=== PATIENT | female | born 1980 | race American Indian/Alaskan Native ===

== ENCOUNTER 2017-07-27 12:22 | Emergency (ER) | payer BC ==
--- NOTE | 2017-07-27 14:30 | PCM.SN ---
- Free Text/Narrative Note: S: 37yo female with dysuria, urgency, frequency. Feels like a UTI she had over 10 years ago. No fever, chills, nausea, vomiting or back pain. O: See nurses vitals that are within normal limits. General well appearing. No formal exam. UA: Protein 100. Leukocyte esterase Large. micro pending. A: UTI P: Macrobid 100mg BID for 7 days prescribed. Follow up PRN. Patient should not have ER charges beyond nurse triage and lab. NO PHYSICIAN CHARGE for myself. -Dr. Verduzco
== END 2017-07-27 14:02 | disposition home or self-care (01) ==
LOC: DL.ED 12:22
DX: Z53.21 Procedure and treatment not carried out due to patient leaving prior to being seen by health care provider (principal)
CPT/HCPCS: 81001

== ENCOUNTER 2018-08-13 20:30 | Emergency (ER) | payer BC ==
[2018-08-13] MEDS ORDERED: Ondansetron 4 MG/2 ML SDV IV ONE ×2 (20:51→20:57)
[2018-08-13] MEDS ORDERED: Sodium Chloride 0.9% 1,000 ML IV ONE (20:51)
[2018-08-13] MEDS ORDERED: Metoclopramide 10 MG/2 ML SDV IVPUSH ONE (21:30)
[2018-08-13 21:35] LABS: ANION GAP 15.1; CHLORIDE,CL 99 mmol/L (101-111); SODIUM,NA 134 mmol/L (135-145)
[2018-08-13] MEDS ORDERED: Iopamidol 612 MG/ML 75 ML Bottle IVPUSH ONE (21:52)
--- NOTE | 2018-08-13 21:57 | EDM.PDOC ---
ED HPI GENERAL MEDICAL PROBLEM - General Chief Complaint: Gastrointestinal Problem Stated Complaint: NOT FELLING WELL Time Seen by Provider: 08/13/18 21:54 Source of Information: Reports: Patient History Limitations: Reports: No Limitations - History of Present Illness INITIAL COMMENTS - FREE TEXT/NARRATIVE: c/o V&D today and abd pain too. Abdominal Pain Score (Numeric/FACES): 2 - Related Data Allergies Allergy/AdvReac Type Severity Reaction Status Date / Time No Known Allergies Allergy Verified 07/27/17 13:50 Home Meds: Home Meds . [No Known Home Meds] 08/13/18 [History] Past Medical History HEENT History: Reports: None Cardiovascular History: Reports: None Respiratory History: Reports: Asthma Gastrointestinal History: Reports: None Genitourinary History: Reports: UTI, Recurrent CRISIS NURSE History: Reports: , Other (See Below) Other CRISIS NURSE History: OB vaginal delivery 07/09/17 Musculoskeletal History: Reports: None Neurological History: Reports: None Psychiatric History: Reports: Depression Endocrine/Metabolic History: Reports: None Hematologic History: Reports: None Immunologic History: Reports: None Oncologic (Cancer) History: Reports: None - Past Surgical History Head Surgeries/Procedures: Reports: None HEENT Surgical History: Reports: None Respiratory Surgical History: Reports: None GI Surgical History: Reports: None Female Surgical History: Reports: None Musculoskeletal Surgical History: Reports: None Social & Family History - Family History Family Medical History: Noncontributory - Tobacco Use Smoking Status *Q: Never Smoker Second Hand Smoke Exposure: No - Caffeine Use Caffeine Use: Reports: None - Recreational Drug Use Recreational Drug Use: No ED ROS GENERAL - Review of Systems Review Of Systems: ROS reveals no pertinent complaints other than HPI. ED EXAM, GI/ABD - Physical Exam Exam: See Below Exam Limited By: No Limitations General Appearance: Alert, WD/WN, Mild Distress, Active Emesis, Other ( discomfort) Ears: Hearing Grossly Normal Throat/Mouth: Normal Voice, No Airway Compromise Head: Atraumatic Neck: Non-Tender, Full Range of Motion Respiratory/Chest: No Respiratory Distress Cardiovascular: Regular Rate, Rhythm GI/Abdominal Exam: Tender, Other (BS hyper). No: Distended, Guarding, Rigid, Rebound Neurological: Alert, Oriented, Normal Cognition, Normal Gait, No Motor/Sensory Deficits Psychiatric: Tearful Skin Exam: Warm, Dry, Normal Color Lymphatic: No Adenopathy Course - Vital Signs Last Recorded V/S: Last Vital Signs Temp 37.2 C 08/13/18 23:04 Pulse 97 08/13/18 23:04 Resp 18 08/13/18 23:04 BP 91/49 L 08/13/18 23:04 Pulse Ox 99 08/13/18 23:04 - Orders/Labs/Meds Orders: Active Orders 24 hr Category Date Time Status Abdomen Pelvis w Cont [CT] Urgent Exams 08/13/18 21:53 Taken CULTURE BLOOD [BC] Stat Lab 08/13/18 21:05 Received Labs: Laboratory Tests 08/13/18 08/13/18 08/13/18 Range/Units 21:05 21:05 21:05 WBC 16.0 H (5.0-10.0) 10^3/uL RBC 4.56 (4.2-5.4) 10^6/uL Hgb 14.1 (12.0-16.0) g/dL Hct 42.2 (37.0-47.0) % MCV 92.5 (80-100) fL MCH 30.9 (27.0-34.0) pg MCHC 33.4 (33.0-35.0) g/dL Plt Count 290 (150-450) 10^3/uL Neut % (Auto) 95.3 H (42.2-75.2) % Lymph % (Auto) 1.7 L (20.5-50.1) % Harney % (Auto) 2.7 (2-8) % Eos % (Auto) 0.2 L (1.0-3.0) % Baso % (Auto) 0.1 (0.0-1.0) % Sodium 134 L (135-145) mmol/L Potassium 3.1 L (3.6-5.0) mmol/L Chloride 99 L (101-111) mmol/L Carbon Dioxide 23.0 (21.0-31.0) mmol/L Anion Gap 15.1 BUN 18 (7-18) mg/dL Creatinine 0.6 (0.6-1.3) mg/dL Est Cr Clr Drug Dosing 131.56 mL/min Estimated GFR (MDRD) > 60 BUN/Creatinine Ratio 30.00 Glucose 111 H (74-105) mg/dL Lactic Acid 1.0 (0.5-2.2) mmol/L Calcium 8.9 (8.4-10.2) mg/dl Total Bilirubin 0.9 (0.2-1.0) mg/dL AST 29 (10-42) IU/L ALT 33 (10-60) IU/L Alkaline Phosphatase 54 (42-121) IU/L Total Protein 8.6 H (6.7-8.2) g/dl Albumin 4.6 (3.2-5.5) g/dl Globulin 4.0 Albumin/Globulin Ratio 1.15 Amylase 78 (28-100) U/L Lipase 23 (22-51) U/L HCG, Qual Negative Urine Color (YELLOW) Urine Appearance (CLEAR) Urine pH (5.0-9.0) Ur Specific Jal (1.005-1.030) Urine Protein (NEGATIVE) Urine Glucose (UA) (NEGATIVE) Urine Ketones (NEGATIVE) Urine Occult Blood (NEGATIVE) Urine Nitrite (NEGATIVE) Urine Bilirubin (NEGATIVE) Urine Urobilinogen (0.2-1.0) mg/dL Ur Leukocyte Esterase (NEGATIVE) Urine RBC /HPF Urine WBC (0-5/HPF) /HPF Ur Epithelial Cells /HPF Urine Bacteria (0-FEW/HPF) /HPF Urine Mucus /LPF 08/13/18 Range/Units 21:48 WBC (5.0-10.0) 10^3/uL RBC (4.2-5.4) 10^6/uL Hgb (12.0-16.0) g/dL Hct (37.0-47.0) % MCV (80-100) fL MCH (27.0-34.0) pg MCHC (33.0-35.0) g/dL Plt Count (150-450) 10^3/uL Neut % (Auto) (42.2-75.2) % Lymph % (Auto) (20.5-50.1) % Harney % (Auto) (2-8) % Eos % (Auto) (1.0-3.0) % Baso % (Auto) (0.0-1.0) % Sodium (135-145) mmol/L Potassium (3.6-5.0) mmol/L Chloride (101-111) mmol/L Carbon Dioxide (21.0-31.0) mmol/L Anion Gap BUN (7-18) mg/dL Creatinine (0.6-1.3) mg/dL Est Cr Clr Drug Dosing mL/min Estimated GFR (MDRD) BUN/Creatinine Ratio Glucose (74-105) mg/dL Lactic Acid (0.5-2.2) mmol/L Calcium (8.4-10.2) mg/dl Total Bilirubin (0.2-1.0) mg/dL AST (10-42) IU/L ALT (10-60) IU/L Alkaline Phosphatase (42-121) IU/L Total Protein (6.7-8.2) g/dl Albumin (3.2-5.5) g/dl Globulin Albumin/Globulin Ratio Amylase (28-100) U/L Lipase (22-51) U/L HCG, Qual Urine Color Yellow (YELLOW) Urine Appearance Slightly cloudy (CLEAR) Urine pH 8.5 (5.0-9.0) Ur Specific Jal 1.015 (1.005-1.030) Urine Protein Trace H (NEGATIVE) Urine Glucose (UA) Negative (NEGATIVE) Urine Ketones >=160 H (NEGATIVE) Urine Occult Blood Large H (NEGATIVE) Urine Nitrite Negative (NEGATIVE) Urine Bilirubin Negative (NEGATIVE) Urine Urobilinogen 0.2 (0.2-1.0) mg/dL Ur Leukocyte Esterase Negative (NEGATIVE) Urine RBC >100 H /HPF Urine WBC 0-5 (0-5/HPF) /HPF Ur Epithelial Cells Rare /HPF Urine Bacteria Rare (0-FEW/HPF) /HPF Urine Mucus Rare /LPF Meds: Medications Discontinued Medications Generic Name Dose Route Start Last Admin Trade Name Scarq PRN Reason Stop Dose Admin Sodium Chloride 1,000 mls @ 999 mls/hr 08/13/18 20:51 08/13/18 21:06 Normal Saline IV 08/13/18 21:51 999 mls/hr .BOLUS ONE Administration Iopamidol 75 ml 08/13/18 21:52 08/13/18 22:20 Isovue-300 (61%) IVPUSH 08/13/18 21:53 73 ml ONETIME ONE Administration Ketorolac Tromethamine 15 mg 08/13/18 22:26 08/13/18 22:33 Toradol IVPUSH 08/13/18 22:27 15 mg ONETIME ONE Administration Metoclopramide HCl 10 mg 08/13/18 21:30 08/13/18 21:35 Reglan IVPUSH 08/13/18 21:31 10 mg ONETIME ONE Administration Ondansetron HCl 4 mg 08/13/18 20:51 08/13/18 21:07 Zofran IV 08/13/18 20:52 4 mg ONETIME ONE Administration Ondansetron HCl 4 mg 08/13/18 20:57 08/13/18 21:08 Zofran IV 08/13/18 20:58 Not Given ONETIME ONE - Re-Assessments/Exams Free Text/Narrative Re-Assessment/Exam: 08/13/18 23:27 results discussed with pt who is feeling better s/p IV + Rx Departure - Departure Time of Disposition: 23:27 Disposition: Home, Self-Care 01 Condition: Good Clinical Impression: Vomiting, Diarrhea, Gastroenteritis - Discharge Information Instructions: Nausea and Vomiting, Adult, [id number] Forms: ED Department Discharge Additional Instructions: 1) no solid foods next 48 hours 2) rest 3) liquids rx given; bentyl 10mg bid prn x 8 zofran 4mg bid prn x 6 imodium qid prn - My Orders Last 24 Hours: My Active Orders 08/13/18 21:05 CULTURE BLOOD [BC] Stat 08/13/18 21:53 Abdomen Pelvis w Cont [CT] Urgent - Assessment/Plan Last 24 Hours: My Active Orders 08/13/18 21:05 CULTURE BLOOD [BC] Stat 08/13/18 21:53 Abdomen Pelvis w Cont [CT] Urgent
[2018-08-13] MEDS ORDERED: Ketorolac 30 MG/ML SDV IVPUSH ONE (22:26)
== END 2018-08-13 23:39 | disposition home or self-care (01) ==
LOC: DL.ED 20:30
DX: K52.9 Noninfective gastroenteritis and colitis, unspecified (principal)
CPT/HCPCS: 36415; 74177; 80053; 81001; 82150; 83605; 83690; 84703; 85025; 87040; 96365; 96375; 99284; J1885; J2405; J2765; J7030; Q9967

== ENCOUNTER 2019-11-19 11:25 | Emergency (ER) | payer BC ==
--- NOTE | 2019-11-19 15:13 | EDM.PDOC ---
Scribed by Tona Garcia 11/19/19 1148 for Alfredo Hwang NP ED HPI GENERAL MEDICAL PROBLEM - General Chief Complaint: Skin Complaint Stated Complaint: BEE STING Time Seen by Provider: 11/19/19 11:38 Source of Information: Reports: Patient, RN, RN Notes Reviewed History Limitations: Reports: No Limitations - History of Present Illness INITIAL COMMENTS - FREE TEXT/NARRATIVE: A 39-year-old female who presents with complaints of horse fly bite 20 minutes ago. Patient she was in the kitchen cooking when she felt a fly biting on the top of her right hand. She reports allergy to bee stings. She took 3 teaspoons of Benadryl from her son's Benadryl. She was seen in the clinic and she apparently had reported that the horse fly venom is running up her right hand. She also reports shortness of breath and wanted to be seen and evaluated in the ER. She denies shortness of breath at this time and states that maybe is was just anxiety. No shortness of breath, chest pain, palpitation, angioedema or leg swelling. Onset: Today Duration: Constant Location: Reports: Upper Extremity, Right Quality: Reports: Ache Severity: Mild Improves with: Reports: None Worsens with: Reports: None Associated Symptoms: Reports: No Other Symptoms Treatments 911 TELECOMMUNICATOR: Reports: Other (see below) (Benadryl) - Related Data Allergies Allergy/AdvReac Type Severity Reaction Status Date / Time No Known Allergies Allergy Verified 07/27/17 13:50 Home Meds: Home Meds Venlafaxine HCl [Venlafaxine ER] 37.5 mg PO DAILY 11/19/19 [History] Past Medical History HEENT History: Reports: None Cardiovascular History: Reports: None Respiratory History: Reports: Asthma Gastrointestinal History: Reports: None Genitourinary History: Reports: UTI, Recurrent RECORD SYSTEMS ANALYST History: Reports: , Other (See Below) Other RECORD SYSTEMS ANALYST History: OB vaginal delivery 07/09/17 Musculoskeletal History: Reports: None Neurological History: Reports: None Psychiatric History: Reports: Depression Endocrine/Metabolic History: Reports: None Hematologic History: Reports: None Immunologic History: Reports: None Oncologic (Cancer) History: Reports: None - Past Surgical History Head Surgeries/Procedures: Reports: None HEENT Surgical History: Reports: None Respiratory Surgical History: Reports: None GI Surgical History: Reports: None Female Surgical History: Reports: None Musculoskeletal Surgical History: Reports: None Social & Family History - Family History Family Medical History: Noncontributory - Caffeine Use Caffeine Use: Reports: None ED ROS GENERAL - Review of Systems Review Of Systems: Comprehensive ROS is negative, except as noted in HPI. ED EXAM, SKIN/RASH Exam: See Below Exam Limited By: No Limitations General Appearance: Alert, WD/WN, No Apparent Distress Eye Exam: Bilateral Eye: EOMI, Normal Inspection, PERRL Ears: Normal External Exam, Normal Canal, Hearing Grossly Normal, Normal TMs Nose: Normal Inspection, Normal Mucosa, No Blood Throat/Mouth: Normal Inspection, Normal Lips, Normal Teeth, Normal Gums, Normal Oropharynx, Normal Voice, No Airway Compromise Head: Atraumatic, Normocephalic Neck: Normal Inspection, Supple, Non-Tender, Full Range of Motion Respiratory/Chest: No Respiratory Distress, Lungs Clear, Normal Breath Sounds, No Accessory Muscle Use, Chest Non-Tender Cardiovascular: Normal Peripheral Pulses, Regular Rate, Rhythm, No Edema, No Gallop, No JVD, No Murmur, No Rub GI/Abdominal: Normal Bowel Sounds, Soft, Non-Tender, No Organomegaly, No Distention, No Abnormal Bruit, No Mass (Female) Exam: Deferred Rectal (Female) Exam: Deferred Back Exam: Normal Inspection, Full Range of Motion, NT Extremities: Other (right hand had a little bit of redness but no warmth or increased swelling noted. ) Neurological: Alert, Oriented, CN II-XII Intact, Normal Cognition, Normal Gait, Normal Reflexes, No Motor/Sensory Deficits Psychiatric: Anxious Skin: Warm, Dry Course - Vital Signs Last Recorded V/S: Last Vital Signs Temp 97.4 F 11/19/19 11:36 Pulse 95 11/19/19 11:36 Resp 16 11/19/19 11:36 BP 113/74 11/19/19 11:36 Pulse Ox 98 11/19/19 11:36 - Re-Assessments/Exams Free Text/Narrative Re-Assessment/Exam: 11/19/19 15:11 Reviewed the above findings with patient. Encouraged her to take Famotidine over the counter. Use EpiPen as prescribed. Symptoms to return to the ER reviewed with the patient. Patient verbalized understanding. Departure - Departure Time of Disposition: 11:44 Disposition: Home, Self-Care 01 Condition: Good Clinical Impression: Bug bite of right hand Qualifiers: Encounter type: initial encounter Qualified Code(s): S60.561A - Insect bite (nonvenomous) of right hand, initial encounter; W57.XXXA - Bitten or stung by nonvenomous insect and other nonvenomous arthropods, initial encounter - Discharge Information *PRESCRIPTION DRUG MONITORING PROGRAM REVIEWED*: Not Applicable Instructions: Insect Bite, Adult, [id number] Referrals: PCP,None [Primary Care Provider] - Forms: ED Department Discharge Additional Instructions: Continue with antihistamine as needed every 8 hours. apply ice to the area of the bug bite. Symptoms to return to the ER reviewed with the patient. Follow up with PCP PRN. Patient verbalized understanding. Sepsis Event Note (ED) - Focused Exam Vital Signs: Vital Signs Temp Pulse Resp BP Pulse Ox 11/19/19 11:36 97.4 F 95 16 113/74 98 I have read and agree with the documentation that has been completed regarding this visit. By signing this record, I attest that the documentation was completed in my physical presence and is an accurate record of the encounter.
== END 2019-11-19 11:50 | disposition home or self-care (01) ==
LOC: DL.ED 11:25
DX: S60.561A Insect bite (nonvenomous) of right hand, initial encounter (principal); F32.9 Major depressive disorder, single episode, unspecified; Z79.899 Other long term (current) drug therapy; W57.XXXA Bitten or stung by nonvenomous insect and other nonvenomous arthropods, initial encounter; Y93.G3 Activity, cooking and baking; Y92.000 Kitchen of unspecified non-institutional (private) residence as the place of occurrence of the external cause
CPT/HCPCS: 99282